=== PATIENT | male | born 1980 | race Caucasian/White ===

== ENCOUNTER 2021-10-03 20:34 | Emergency (ER) | payer BC ==
--- NOTE | 2021-10-03 21:13 | EDM.PDOC ---
ED HPI GENERAL MEDICAL PROBLEM - General Chief Complaint: General Stated Complaint: INFECTION IN SPINE Time Seen by Provider: 10/03/21 20:36 - History of Present Illness INITIAL COMMENTS - FREE TEXT/NARRATIVE: History of present illness: [] This patient says today after an MRI he was told he has to come here because he probably has osteomyelitis of his spine. His history is that he has back pain since August 06. He thinks he injured himself lifting. Some days he has so much pain and spasm he can hardly walk. Today he is having a good day and had for the last 2 days pretty good day would pretty good flexibility. He has been seen for pain medicine in the [facility] 6 or 7 times. Originally they put him on ibuprofen. When that failed they put him on indomethacin and he also had some swelling of an ankle so they said it might be gout. Patient has had narcotic pain medicine, diclofenac, Flexeril. He continues to have days when he can hardly walk because of severe back spasm and pain. The patient has never lost control of his bowel or bladder. He is never lost feeling in his buttocks or his legs. He is never lost strength and motion in his feet or legs. His immobility has been secondary to pain and spasm. The patient has never had fever or chills. He has no warm spots on his back. The patient today had an MRI and that showed some phlegmon and possible discitis in the lumbar spine at the right inferior articular process of L4 and L5 with joint effusion and extruded joint fluid around L4-L5 facet and T2 has hyperintensity involving the right-sided erector spinae musculature. L4-5 has disc desiccation with right-sided facet joint effusion there is neuroforaminal encroachment on L4 with hypertrophy of the right superior articular process of L4 impression was joint effusion involving right L45 with adjacent marrow edema. There was associated periarticular fluid collection with prominent edematous changes within the right paraspinous musculature. The interpretation is that the findings were presumptively secondary to acute osseous edema axial load with associated joint effusion. It says an infectious etiology is not entirely excluded but are common in people without low back pain. Clinical correlation advised. The patient with no fever also had no elevation of his white blood cell count today when the lab was done at the [facility]. He has a 10,300 white count with 58% neutrophils and 27% lymphs. Review of systems: As per history of present illness and below otherwise all systems reviewed and negative. Past medical history: As per history of present illness and as reviewed below otherwise noncontributory. Surgical history: As per history of present illness and as reviewed below otherwise noncontributory. Social history: No reported history of drug or alcohol abuse. Family history: As per history of present illness and as reviewed below otherwise noncontributory. Physical exam: Constitutional - well developed, well-nourished and in no acute distress HEENT - normocephalic, no evidence of trauma - external nose and mouth normal - no mass in neck and no JVD - mucosae moist EYES - full EOM, PERRL, no icterus - no evidence of inflammation, injection, or drainage Respiratory - no respiratory distress, equal bilateral expansion, lungs clear to auscultation and no abnormal lung sounds Cardiovascular - Regular Rhythm with S1 and S2 appreciated and no murmur, gallop or rub. GI - abdomen soft without distension or organomegaly - normal bowel sounds - no guard or rebound Musculoskeletal straight leg raise right and left negative for radicular pain. No gross deformity of long bones or joints - no tenderness, swelling or edema Neurologic - Alert and oriented times four - CN II-XII grossly intact - motor sensory and coordination symmetrically normal Psychiatric - appropriate mood and affect with normal thought content Hematologic - No petechiae or purpura - mucosa appropriate color and sclera not pale - normal nail bed color and refill Integument -no inflammation redness or warmth over the thoracic or lumbar spine posteriorly. No tenderness of the spine. No rash or evidence of trauma - normal turgor Diagnostics: [] Therapeutics: [] Impression: [] Plan: [] Definitive disposition and diagnosis as appropriate pending reevaluation and review of above. Back Pain Score (Numeric/FACES): 4 - Related Data Allergies Allergy/AdvReac Type Severity Reaction Status Date / Time No Known Allergies Allergy Verified 10/03/21 20:52 Home Meds: Home Meds Cyclobenzaprine [Flexeril] 10/03/21 [History] Diclofenac Sodium 10/03/21 [History] diazePAM [Valium] 5 mg PO TID PRN #20 tab 10/03/21 [Rx] predniSONE [Prednisone] 60 mg PO DAILY #21 tablet 10/03/21 [Rx] Social & Family History - Tobacco Use Second Hand Smoke Exposure: No - Caffeine Use Caffeine Use: Reports: None - Recreational Drug Use Recreational Drug Use: No ED ROS GENERAL - Review of Systems Review Of Systems: Comprehensive ROS is negative, except as noted in HPI. ED EXAM, GENERAL - Physical Exam Exam: See Below Free Text/Narrative:: My physical exam is in the HPI Course - Vital Signs Last Recorded V/S: Last Vital Signs Temp 36.6 C 10/03/21 20:46 Pulse 93 10/03/21 20:46 Resp 20 10/03/21 20:46 BP 130/81 10/03/21 20:46 Pulse Ox 99 10/03/21 20:46 - Orders/Labs/Meds Meds: Medications Discontinued Medications Generic Name Dose Route Start Last Admin Trade Name Freq PRN Reason Stop Dose Admin Dexamethasone 10 mg 10/03/21 21:28 Dexamethasone 10 Mg/Ml Sdv IM 10/03/21 21:29 STAT STA Diazepam 5 mg 10/03/21 21:28 Diazepam 2 Mg Tab PO 10/03/21 21:29 ONETIME ONE - Re-Assessments/Exams Free Text/Narrative Re-Assessment/Exam: 10/03/21 21:32 Review of the radiology report indicates that this patient has some discitis and some paraspinous edema. The radiologist said he cannot exclude infection and to do clinical correlation. Patient has no redness or warmth. He has no fever and chills. He has no white count. He has no neurologic deficit. I think we can exclude infectious process clinically. Patient has seen a chiropractor twice and seems like he gets worse after they pop his back. There is a orthopedist who does spine care at the [facility] close to the patient and I asked him to follow-up there or our primary care. They take your child to Dr. Marley here locally. Cauda equina warnings given explicitly. Departure - Departure Time of Disposition: 21:33 Disposition: Home, Self-Care 01 Condition: Good Clinical Impression: Back pain - Discharge Information Instructions: Acute Back Pain, Adult Referrals: Gely Walker NP [Primary Care Provider] - Forms: ED Department Discharge Additional Instructions: You need to be seen immediately even if you have to come 911 to the hospital I can transfer you to the spine center if you Lose control of your bowel or bladder Lose feeling in your buttocks or legs Lose movement or strength in one or both feet legs or thighs Follow-up with primary care they can make an appropriate referral if you need to see a spine surgeon Take this note to the [facility] clinic and tell them that spine surgery follow-up is advised but there is no spine surgeon in [facility]. [facility] [address] [place] [address] [facility] [address] [place] [address] The following information is given to patients seen in the emergency department who are being discharged to home. This information is to outline your options for follow-up care. We provide all patients seen in our emergency department with a follow-up referral. The need for follow-up, as well as the timing and circumstances, are variable depending upon the specifics of your emergency department visit. If you don't have a primary care physician on staff, we will provide you with a referral. We always advise you to contact your personal physician following an emergency department visit to inform them of the circumstance of the visit and for follow-up with them and/or the need for any referrals to a consulting specialist. The emergency department will also refer you to a specialist when appropriate. This referral assures that you have the opportunity for follow-up care with a specialist. All of these measure are taken in an effort to provide you with optimal care, which includes your follow-up. Under all circumstances we always encourage you to contact your private physician who remains a resource for coordinating your care. When calling for follow-up care, please make the office aware that this follow-up is from your recent emergency room visit. If for any reason you are refused follow-up, please contact the [facility] Emergency Department at and asked to speak to the emergency department charge nurse. Sepsis Event Note (ED) - Evaluation Sepsis Screening Result: No Definite Risk - Focused Exam Vital Signs: Vital Signs Temp Pulse Resp BP Pulse Ox 10/03/21 20:46 36.6 C 93 20 130/81 99
[2021-10-03] MEDS ORDERED: Dexamethasone 10 MG/ML SDV IM STA (21:28)
[2021-10-03] MEDS ORDERED: Diazepam 2 MG Tab PO ONE (21:28)
== END 2021-10-03 21:59 | disposition home or self-care (01) ==
LOC: MW.ED 20:34
DX: M54.50 Low back pain, unspecified (principal)
CPT/HCPCS: 96372; 99283; A9270; J1100